=== PATIENT | male | born 1955 | race Caucasian/White ===

== ENCOUNTER 2020-07-13 09:48 | Emergency (ER) | payer MEDICARE, BC ==
[2020-07-13] MEDS ORDERED: Tenecteplase 50 MG Kit ONE (10:16)
[2020-07-13] MEDS ORDERED: Aspirin 81 MG Tab.Chew PO ONE (10:19)
[2020-07-13] MEDS ORDERED: Clopidogrel 75 MG Tab PO ONE (10:20)
--- NOTE | 2020-07-13 10:24 | EDM.PDOC ---
ED HPI GENERAL MEDICAL PROBLEM - General Chief Complaint: Chest Pain Stated Complaint: SOB/COVID + Time Seen by Provider: 07/13/20 10:10 Source of Information: Reports: Patient History Limitations: Reports: No Limitations - History of Present Illness INITIAL COMMENTS - FREE TEXT/NARRATIVE: 64-year-old male presents to the ED with acute onset of central chest pain rating up under his right shoulder blade about an hour prior to arrival in the ED. Patient has no previous known coronary artery disease. Of note he was diagnosed with COVID-19 illness 1 week ago July 06. He went to the doctor because he was having some troubles with bronchitis and his COVID-19 screen came back positive. His had the illness around [facility] last year. He has not received any COVID-19 vaccinations. He was ill for 2 days prior to this. He has had no previous CVA or closed head injury. No peptic ulcer disease no bleeding recently into the stool. ECG done by triage nurse shows acute ST segment elevation in leads II, III and aVF compatible with acute inferior wall injury or STEMI. Patient has no contraindications to receiving thrombolytics and has agreed to this treatment. He will therefore be given tenecteplase 50 mg IV stat. He has been given aspirin 324 mg chewed. He will receive Plavix 300 mg p.o. as well. He will then be started on heparin infusion 4000 unit bolus followed by 1000 units/h. He will have routine labs performed and a chest x-ray. Plan will be to transfer him by ground ambulance since helicopter cannot fly at this time to [facility] in [place] as soon as possible. Onset: Today, Sudden Onset Date: 07/13/20 Onset Time: 09:00 Duration: Minutes:, Constant, Getting Worse Location: Reports: Chest (Atrial chest pressure squeezing discomfort rating through to his right back under the shoulder blade.) Quality: Reports: Ache ( Nothing up at the nape of the neck or down the right arm.), Pressure Severity: Severe Improves with: Reports: None (1010.) Worsens with: Reports: Movement Context: Reports: Other. Denies: Activity, Exercise, Lifting, Sick Contact (Walking seem to make it worse.), Trauma Associated Symptoms: Reports: Chest Pain (Spontaneous onset about an hour prior to arrival in the ED.), Cough, cough w sputum (He is coughing due to COVID-19 il lness.), Loss of Appetite, Malaise, Nausea/Vomiting, Shortness of Breath, Weakness (Nausea without vomiting). Denies: Confusion, Diaphoresis, Fever/Chills, Headaches, Rash, Seizure, Syncope Treatments [employer]: Reports: Other (see below) (None.) Lower Abdomen Pain Score (Numeric/FACES): 3 - Related Data Allergies Allergy/AdvReac Type Severity Reaction Status Date / Time codeine Allergy Other Verified 07/13/20 10:08 Past Medical History HEENT History: Reports: Hard of Hearing, Impaired Vision Cardiovascular History: Reports: Aneurysm Other Cardiovascular History: aortic aneurysm--has yearly abdominal aortic ultrasound Respiratory History: Reports: Bronchitis, Recurrent Gastrointestinal History: Reports: GERD, GI Bleed, Hemorrhoids Other Gastrointestinal History: double hernia surgery in 1976 Endocrine/Metabolic History: Reports: Diabetes, Type II - Infectious Disease History Infectious Disease History: Reports: Novel Coronavirus - Past Surgical History GI Surgical History: Reports: Colonoscopy, Hernia Repair/Other Social & Family History - Tobacco Use Tobacco Use Status *Q: Former Tobacco User Used Tobacco, but Quit: Yes Month/Year Tobacco Last Used: 03/1999 - Caffeine Use Caffeine Use: Reports: Coffee - Recreational Drug Use Recreational Drug Use: No - Living Situation & Occupation Living situation: Reports: Occupation: Retired ED ROS GENERAL - Review of Systems Review Of Systems: See Below Constitutional: Reports: Fever, Chills, Malaise, Weakness, Decreased Appetite HEENT: Reports: Glasses (Since COVID-19 illness.) Respiratory: Reports: Shortness of Breath, Wheezing, Cough, Sputum. Denies: Pleuritic Chest Pain, Hemoptysis Cardiovascular: Reports: Chest Pain (See history of present illness), Dyspnea on Exertion. Denies: Blood Pressure Problem, Claudication, Lightheadedness, Orthopnea Endocrine: Reports: Fatigue (COVID-19 illness.) GI/Abdominal: Reports: Diarrhea, Decreased Appetite, Nausea (Minimal diarrhea at onset of illness.) : Reports: Frequency ( Comes and goes), Other Musculoskeletal: Reports: Joint Pain (Teary at times to known BPH.) Skin: Reports: No Symptoms ( Knees hips low back neck and shoulders at times.) Neurological: Reports: Headache (Patient with the COVID-19 illness a week ago not so bad lately.), Difficulty Walking, Weakness. Denies: Confusion, Dizziness Psychiatric: Reports: No Symptoms Hematologic/Lymphatic: Reports: No Symptoms (Due to weakness in his lower extremities.) Immunologic: Reports: No Symptoms ED EXAM, GENERAL - Physical Exam Exam: See Below Exam Limited By: No Limitations General Appearance: Alert, WD/WN, Moderate Distress, Other (And is in severe pain. Temperature is 36.2 degrees heart rate 81 and sinus respiratory is 18 with O2 sats 100% on 2 L. BP 166/99.) Eye Exam: Bilateral Eye: Normal Inspection, PERRL (No scleral icterus or blepharal pallor.) Throat/Mouth: Normal Inspection, Normal Lips, Normal Oropharynx, Other Head: Atraumatic, Normocephalic Neck: Normal Inspection, Supple, Non-Tender, Full Range of Motion. No: Carotid Bruit, Lymphadenopathy (L), Lymphadenopathy (R) Respiratory/Chest: No Respiratory Distress, Lungs Clear, Normal Breath Sounds, No Accessory Muscle Use. No: Rhonchi, Wheezing Cardiovascular: Regular Rate, Rhythm, No Edema, No Gallop, No Murmur, No Rub. No: Normal Peripheral Pulses Peripheral Pulses: 2+: Carotid (L), Carotid (R), Posterior Tibial (L), Posterior Tibial (R), Dorsalis Pedis (L), Dorsalis Pedis (R) GI/Abdominal: Soft, Non-Tender (No sounds are present but are fairly quiesced sent in all 4 quadrants.), No Organomegaly, No Mass, Pelvis Stable, Abnormal Bowel Sounds Back Exam: Normal Inspection, Full Range of Motion. No: CVA Tenderness (L), CVA Tenderness (R) Extremities: Normal Inspection, Normal Range of Motion, Non-Tender, No Pedal Edema Neurological: Alert, Oriented, CN II-XII Intact, Normal Cognition. No: Normal Gait Psychiatric: Other Skin Exam: Warm, Dry, Intact, Normal Color (And a good deal of pain.), No Rash #1 Interpretation EKG Date: 07/13/20 Time: 10:12 Rhythm: NSR Rate (Beats/Min): 82 [place]: Normal P-Wave: Present QRS: Other (Acute ST segment elevation in leads II, III and aVF compared with inferior wall 3.) #2 Interpretation EKG Date: 07/13/20 (ECG #2 is right-sided precordial leads.) Time: 10:27 Rhythm: NSR Rate (Beats/Min): 80 P-Wave: Present QRS: Other (There is ST segment depression VR 1 V2 are in V3 R. There are Q waves from V3 R to V6 are leads suggesting right ventricular infarct. There remains marked ST segment elevation in leads II, III and aVF compatible with an acute inferior wall myocardial infarction. Reciprocal changes with ST segment) ST-T: Elevated (Leads II, III and aVF acute inferior wall myocardial infarction) QT: Normal EKG Interpretation Comments: Abnormal ECG Course - Vital Signs Last Recorded V/S: Last Vital Signs Temp 36.2 C 07/13/20 10:02 Pulse 81 07/13/20 10:02 Resp 18 07/13/20 10:02 BP 166/99 H 07/13/20 10:02 Pulse Ox 100 07/13/20 10:02 - Orders/Labs/Meds Orders: Active Orders 24 hr Category Date Time Status EKG 12 Lead [EKG Documentation Completion] [] STAT Care 07/13/20 11:29 Active EKG 12 Lead [EKG Documentation Completion] [RC] STAT Care 07/13/20 11:29 Active Oxygen Therapy [RC] ASDIRECTED Care 07/13/20 10:20 Active CBC W/O DIFF,HEMOGRAM [HEME] MOTH@0700 Lab 07/16/20 07:00 Ordered CBC W/O DIFF,HEMOGRAM [HEME] MOTH@0700 Lab 07/19/20 07:00 Ordered CBC W/O DIFF,HEMOGRAM [HEME] MOTH@0700 Lab 07/23/20 07:00 Ordered CBC W/O DIFF,HEMOGRAM [HEME] MOTH@0700 Lab 07/26/20 07:00 Ordered CBC W/O DIFF,HEMOGRAM [HEME] MOTH@0700 Lab 07/30/20 07:00 Ordered CBC W/O DIFF,HEMOGRAM [HEME] MOTH@0700 Lab 08/02/20 07:00 Ordered Heparin Sodium/D5W [Heparin 25,000 Units in D5W 500 ML] Med 07/13/20 10:30 Active 25,000 units in 500 ml IV ASDIRECTED Nitroglycerin/D5W [Nitroglycerin 25 MG/D5W 250 ML] Med 07/13/20 10:30 Active 25 mg in 250 ml IV TITRATE Sodium Chloride 0.9% [Normal Saline] 1,000 ml Med 07/13/20 10:30 Active IV ASDIRECTED Medication Orders Sodium Chloride (Normal Saline) 1,000 mls @ 100 mls/hr IV ASDIRECTED CHAGO Last Admin: 07/13/20 10:40 Dose: 100 mls/hr Documented by: LOUISA Nitroglycerin/Dextrose (Nitroglycerin 25 Mg/D5w 250 Ml) 25 mg in 250 mls @ 6 mls/hr IV TITRATE CHAGO; Protocol Last Admin: 07/13/20 10:39 Dose: 10 mcg/min, 6 mls/hr Documented by: LOUISA Heparin Sodium/Dextrose (Heparin 25,000 Units In D5w 500 Ml) 25,000 units in 500 mls @ 20 mls/hr IV ASDIRECTED CHAGO Last Admin: 07/13/20 10:38 Dose: 1,000 units/hr, 20 mls/hr Documented by: LOUISA Cosigned by: ISABELLA Labs: Laboratory Tests 07/13/20 07/13/20 07/13/20 Range/Units 10:15 10:15 10:15 WBC 13.35 H (4.23-9.07) K/mm3 RBC 5.26 (4.63-6.08) M/mm3 Hgb 15.4 (13.7-17.5) gm/dl Hct 44.1 (40.1-51.0) % MCV 83.8 (79.0-92.2) fl MCH 29.3 (25.7-32.2) pg MCHC 34.9 (32.2-35.5) g/dl RDW Std Deviation 40.0 (35.1-43.9) fL Plt Count 374 H (163-337) K/mm3 MPV 9.3 L (9.4-12.3) fl Neut % (Auto) 80.2 H (34.0-67.9) % Lymph % (Auto) 7.9 L (21.8-53.1) % Mason % (Auto) 11.4 (5.3-12.2) % Eos % (Auto) 0 L (0.8-7.0) Baso % (Auto) 0.1 (0.1-1.2) % Neut # (Auto) 10.70 H (1.78-5.38) K/mm3 Lymph # (Auto) 1.06 L (1.32-3.57) K/mm3 Mason # (Auto) 1.52 H (0.30-0.82) K/mm3 Eos # (Auto) 0.00 L (0.04-0.54) K/mm3 Baso # (Auto) 0.02 (0.01-0.08) K/mm3 Manual Slide Review Abnormal smear PT 13.0 H (9.7-12.0) SECONDS INR 1.22 APTT 54.7 H (21.7-31.4) SECONDS Sodium 135 L (136-145) mEq/L Potassium 4.5 (3.5-5.1) mEq/L Chloride 98 (98-107) mEq/L Carbon Dioxide 26 (21-32) mEq/L Anion Gap 15.5 H (5-15) BUN 17 (7-18) mg/dL Creatinine 1.0 (0.7-1.3) mg/dL Est Cr Clr Drug Dosing 80.83 mL/min Estimated GFR (MDRD) > 60 (>60) mL/min BUN/Creatinine Ratio 17.0 (14-18) Glucose 166 H (80-115) mg/dL Calcium 8.9 (8.5-10.1) mg/dL Magnesium 2.0 (1.8-2.4) mg/dl Total Bilirubin 0.8 (0.2-1.0) mg/dL AST 167 H (15-37) U/L ALT 55 (16-63) U/L Alkaline Phosphatase 52 (46-116) U/L CK-MB (CK-2) 185.6 H (0-3.6) ng/ml Troponin I 17.449 H* (0.00-0.056) ng/mL C-Reactive Protein 1.0 (<1.0) mg/dL NT-Pro-B Natriuret Pep (0-125) pg/mL Total Protein 8.0 (6.4-8.2) g/dl Albumin 3.2 L (3.4-5.0) g/dl Globulin 4.8 gm/dL Albumin/Globulin Ratio 0.7 L (1-2) // Range/Units 10:15 WBC (4.23-9.07) K/mm3 RBC (4.63-6.08) M/mm3 Hgb (13.7-17.5) gm/dl Hct (40.1-51.0) % MCV (79.0-92.2) fl MCH (25.7-32.2) pg MCHC (32.2-35.5) g/dl RDW Std Deviation (35.1-43.9) fL Plt Count (163-337) K/mm3 MPV (9.4-12.3) fl Neut % (Auto) (34.0-67.9) % Lymph % (Auto) (21.8-53.1) % Mason % (Auto) (5.3-12.2) % Eos % (Auto) (0.8-7.0) Baso % (Auto) (0.1-1.2) % Neut # (Auto) (1.78-5.38) K/mm3 Lymph # (Auto) (1.32-3.57) K/mm3 Mason # (Auto) (0.30-0.82) K/mm3 Eos # (Auto) (0.04-0.54) K/mm3 Baso # (Auto) (0.01-0.08) K/mm3 Manual Slide Review PT (9.7-12.0) SECONDS INR APTT (21.7-31.4) SECONDS Sodium (136-145) mEq/L Potassium (3.5-5.1) mEq/L Chloride (98-107) mEq/L Carbon Dioxide (21-32) mEq/L Anion Gap (5-15) BUN (7-18) mg/dL Creatinine (0.7-1.3) mg/dL Est Cr Clr Drug Dosing mL/min Estimated GFR (MDRD) (>60) mL/min BUN/Creatinine Ratio (14-18) Glucose (80-115) mg/dL Calcium (8.5-10.1) mg/dL Magnesium (1.8-2.4) mg/dl Total Bilirubin (0.2-1.0) mg/dL AST (15-37) U/L ALT (16-63) U/L Alkaline Phosphatase (46-116) U/L CK-MB (CK-2) (0-3.6) ng/ml Troponin I (0.00-0.056) ng/mL C-Reactive Protein (<1.0) mg/dL NT-Pro-B Natriuret Pep 1300 H (0-125) pg/mL Total Protein (6.4-8.2) g/dl Albumin (3.4-5.0) g/dl Globulin gm/dL Albumin/Globulin Ratio (1-2) Meds: Medications Generic Name Dose Route Start Last Admin Trade Name Ishaan PRN Reason Stop Dose Admin Sodium Chloride 1,000 mls @ 100 mls/hr 07/13/20 10:30 07/13/20 10:40 Normal Saline IV 100 mls/hr ASDIRECTED CHAGO Administration Nitroglycerin/Dextrose 25 mg in 250 mls @ 6 mls/hr 07/13/20 10:30 07/13/20 10:39 Nitroglycerin 25 Mg/D5w 250 Ml IV 10 mcg/min TITRATE CHAGO 6 mls/hr Administration Protocol 10 MCG/MIN Heparin Sodium/Dextrose 25,000 units in 500 mls @ 20 mls/hr 07/13/20 10:30 07/13/20 10:38 Heparin 25,000 Units In D5w 500 Ml IV 1,000 units/hr ASDIRECTED CHAGO 20 mls/hr Administration 1,000 UNITS/HR Discontinued Medications Generic Name Dose Route Start Last Admin Trade Name Ishaan PRN Reason Stop Dose Admin Aspirin 324 mg 07/13/20 10:19 07/13/20 10:31 Aspirin 81 Mg Tab.Chew PO 07/13/20 10:20 324 mg ONETIME ONE Administration Clopidogrel Bisulfate 300 mg 07/13/20 10:20 07/13/20 10:34 Clopidogrel 75 Mg Tab PO 07/13/20 10:21 300 mg ONETIME ONE Administration Fentanyl 50 mcg 07/13/20 10:30 07/13/20 10:46 Fentanyl 100 Mcg/2 Ml Sdv IVPUSH 07/13/20 10:31 50 mcg ONETIME ONE Administration Fentanyl 100 mcg 07/13/20 10:55 07/13/20 10:58 Fentanyl 100 Mcg/2 Ml Sdv IVPUSH 07/13/20 10:56 100 mcg ONETIME ONE Administration Fentanyl Confirm 07/13/20 10:56 Fentanyl 100 Mcg/2 Ml Sdv Administered 07/13/20 10:57 Dose 100 mcg .ROUTE .STK-MED ONE Heparin Sodium (Porcine) 4,000 units 07/13/20 10:25 07/13/20 10:32 Heparin Sodium 5,000 Units/Ml Vial IVPUSH 07/13/20 10:26 4,000 units ONETIME ONE Administration Heparin Sodium (Porcine) 4,000 units 07/13/20 10:26 07/13/20 10:35 Heparin Sodium 5,000 Units/Ml Vial IVPUSH 07/13/20 10:27 Not Given ONETIME ONE Metoclopramide HCl 7.5 mg 07/13/20 10:30 07/13/20 10:44 Metoclopramide 10 Mg/2 Ml Sdv IVPUSH 07/13/20 10:31 7.5 mg ONETIME ONE Administration Tenecteplase Confirm 07/13/20 10:16 07/13/20 10:27 Tenecteplase 50 Mg Kit Administered 07/13/20 10:17 50 mg Dose Administration 50 mg .ROUTE .[facility] ONE - Radiology Interpretation Free Text/Narrative:: 64-year-old male presents to the ED with known COVID-19 illness diagnosed 1 week ago July 06. He was ill for about 2-1/2 days before getting tested with fever chills headache generalized myalgia. He is still coughing and bringing up white sputum production. Patient developed acute onset of severe central chest pain rating up with new his back to the right shoulder blade. ECG reveals acute ST segment elevation in leads II, III and aVF combined with inferior wall myocardial infarction. There are also changes in leads V1 V2 suggesting possible posterior wall infarct as well. Right ventricular leads suggest right ventricular infarct. Patient received aspirin 324 mg chewed. He was given Plavix 300 mg p.o. He was given tenecteplase after discussion and no contraindications to the medication. He received 50 mg IV bolus. Subsequently he has been started on heparin infusion 4000 unit bolus then 1000 units an hour. He has received Reglan 7.5 mg IV for nausea relief and 50 mcg of fentanyl IV for chest pain. Patient will be transported to [facility] as soon as possible by ground ambulance since the helicopter cannot fly. 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 He will the patient in the ED with plans to take him immediately to the [facility]. 07/13/20 10:56 states pain is still 9-10 out of 10. Will repeat fentanyl this time 100 mcg IV. Paramedics were standing by to take him to [place]. Portable chest x-ray reveals heart size to be within normal limits. Tortuous thoracic aorta is noted with mild aneurysmal dilatation. Diffuse pulmonary vascular congestion appreciated. Degenerative changes noted within the spine with minimal scoliosis. 07/13/20 11:41 Lab tests reveal an elevated white count at 13.35 with a left shift of 80.2% neutrophils. Hemoglobin is 15.4 with hematocrit of 44.1. Platelet counts 374,000 slightly elevated. The slide reveals lymphopenia and monocytosis less than 5% banded neutrophils seen. PT is 13.0 with an INR of 1.22 slightly elevated. PTT is elevated at 54.7. Sodium is 135 with a potassium of 4.5. Chloride 98 with a bicarb of 26. Anion gap is 15.5. BUN is 17 with a creatinine of 1.0 GFR is greater than 60. Glucose is elevated at 166. Calcium is 8.9 with a magnesium of 2.0. Bilirubin is 0.8 AST is elevated at 167. ALT is 55. Alk phosphatase normal at 52. CK-MB fraction 185.6. Troponin I is markedly elevated at 17.449. C-reactive protein is 1.0. BNP is 1300. Protein is 8.0 with an albumin fraction of 3.2. Departure - Departure Time of Disposition: 11:10 Disposition: DC/Tfer to Acute Hospital 02 Reason for Transfer *Q: Primary PCI Indicated Condition: Critical Clinical Impression: Acute myocardial infarction due to right coronary artery occlusion, Mild congestive heart failure Referrals: PCP,None [Primary Care Provider] - Forms: ED Department Discharge Additional Instructions: Patient was transferred to [facility] in [place]. Dr. Badillo from the department of cardiology accepted care. The ambulance will transport him to that facility to the emergency department with plans to take him immediately to the [facility]. Critical Care Note - Critical Care Note Total Time (mins): 45 Sepsis Event Note (ED) - Evaluation Sepsis Screening Result: No Definite Risk - Focused Exam Vital Signs: Vital Signs Temp Pulse Resp BP Pulse Ox 07/13/20 10:02 36.2 C 81 18 166/99 H 100 - My Orders Last 24 Hours: My Active Orders 07/13/20 10:20 Oxygen Therapy [RC] ASDIRECTED 07/13/20 10:30 Heparin Sodium/D5W [Heparin 25,000 Units in D5W 500 ML] 25,000 units in 500 ml IV ASDIRECTED Nitroglycerin/D5W [Nitroglycerin 25 MG/D5W 250 ML] 25 mg in 250 ml IV TITRATE Sodium Chloride 0.9% [Normal Saline] 1,000 ml IV ASDIRECTED 07/13/20 11:29 EKG 12 Lead [EKG Documentation Completion] [RC] STAT EKG 12 Lead [EKG Documentation Completion] [RC] STAT 07/16/20 07:00 CBC W/O DIFF,HEMOGRAM [HEME] MOTH@69907/19/20 07:00 CBC W/O DIFF,HEMOGRAM [HEME] MOTH@69907/23/20 07:00 CBC W/O DIFF,HEMOGRAM [HEME] MOTH@69907/26/20 07:00 CBC W/O DIFF,HEMOGRAM [HEME] MOTH@69907/30/20 07:00 CBC W/O DIFF,HEMOGRAM [HEME] MOTH@69908/02/20 07:00 CBC W/O DIFF,HEMOGRAM [HEME] MOTH@0700 - Assessment/Plan Last 24 Hours: My Active Orders 07/13/20 10:20 Oxygen Therapy [RC] ASDIRECTED 07/13/20 10:30 Heparin Sodium/D5W [Heparin 25,000 Units in D5W 500 ML] 25,000 units in 500 ml IV ASDIRECTED Nitroglycerin/D5W [Nitroglycerin 25 MG/D5W 250 ML] 25 mg in 250 ml IV TITRATE Sodium Chloride 0.9% [Normal Saline] 1,000 ml IV ASDIRECTED 07/13/20 11:29 EKG 12 Lead [EKG Documentation Completion] [RC] STAT EKG 12 Lead [EKG Documentation Completion] [RC] STAT 07/16/20 07:00 CBC W/O DIFF,HEMOGRAM [HEME] MOTH@0707/19/20 07:00 CBC W/O DIFF,HEMOGRAM [HEME] MOTH@0707/23/20 07:00 CBC W/O DIFF,HEMOGRAM [HEME] MOTH@69907/26/20 07:00 CBC W/O DIFF,HEMOGRAM [HEME] MOTH@69907/30/20 07:00 CBC W/O DIFF,HEMOGRAM [HEME] MOTH@69908/02/20 07:00 CBC W/O DIFF,HEMOGRAM [HEME] MOTH@699
[2020-07-13] MEDS ORDERED: Heparin Sodium 5,000 Units/ML Vial IVPUSH ONE ×2 (10:25→10:26)
[2020-07-13] MEDS ORDERED: Heparin Sodium/D5W 25,000 UNITS/500 ML BAG IV SCH (10:30)
[2020-07-13] MEDS ORDERED: Metoclopramide 10 MG/2 ML SDV IVPUSH ONE (10:30)
[2020-07-13] MEDS ORDERED: Nitroglycerin/D5W 25 MG/250 ML BOTTLE IV SCH (10:30)
[2020-07-13] MEDS ORDERED: Sodium Chloride 0.9% 1,000 ML IV SCH (10:30)
[2020-07-13] MEDS ORDERED: fentaNYL 100 MCG/2 ML SDV IVPUSH ONE ×2 (10:30→10:55)
[2020-07-13] MEDS ORDERED: fentaNYL 100 MCG/2 ML SDV ONE (10:56)
--- NOTE | 2020-07-13 11:07 | CR ---
Chest: Portable view of the chest was obtained. Comparison: No prior chest x-rays available, previous chest CT study of 06/22/20. Heart size is normal. Tortuous thoracic aorta is noted with mild aneurysmal dilatation. Pulmonary vessels appear increased. Degenerative change is noted within the spine with minimal scoliosis. Impression: 1. Increased lung markings raising the possibility of pulmonary vascular congestion from CHF. Please correlate. Other etiology could be diffuse infectious bronchitis. 2. Other findings which are stable from prior chest CT. Diagnostic code #3
== END 2020-07-13 11:07 ==
LOC: JD.ED 09:48
DX: I21.9 Acute myocardial infarction, unspecified (principal); I50.9 Heart failure, unspecified; E11.9 Type 2 diabetes mellitus without complications; R19.7 Diarrhea, unspecified; D72.829 Elevated white blood cell count, unspecified; R94.31 Abnormal electrocardiogram [ECG] [EKG]; Z86.16 Personal history of COVID-19; Z88.5 Allergy status to narcotic agent; Z87.891 Personal history of nicotine dependence
CPT/HCPCS: 36415; 71045; 80053; 82553; 83735; 83880; 84484; 85025; 85610; 85730; 86140; 93005; 96365; 96368; 96375; 99285; A9270; J1644; J2765; J3010; J3101; J3490; J7030; 93010